=== PATIENT | female | born 1950 | race Caucasian/White ===

== ENCOUNTER 2023-04-11 01:25 | Emergency (ER) | payer OTHER, BC ==
[2023-04-11 01:34] VITALS: BP 150/70; PULSE 100; RESP 18; TEMP 98.3; BMI 24.5
[2023-04-11] MEDS ORDERED: SODIUM CHLORIDE 1,000 ML IV ONE ×2 (01:48→02:48)
[2023-04-11] MEDS ORDERED: ONDANSETRON 4 MG/2 ML VIAL IVPUSH ONE (01:48)
[2023-04-11] MEDS ORDERED: ONDANSETRON 4 MG/2 ML VIAL ONE (01:56)
[2023-04-11 02:54] LABS: HEMATOCRIT 39.6 % (32.4-45.2); HEMOGLOBIN 13.4 GM/dL (10.7-15.3); MCH 30.8 pg (25.7-33.7); MEAN CELL VOLUME 90.7 fl (80-96); MEAN PLT VOLUME 8.1 fl (7.5-11.1); PLATELET COUNT 348 10^3/uL (134-434); RBC 4.36 M/mm3 (3.60-5.2); RDW 12.5 % (11.6-15.6); WHITE BLOOD COUNT 9.5 K/mm3 (4.0-10.0)
[2023-04-11 03:21] LABS: POTASSIUM 3.9 mmol/L (3.5-5.1)
[2023-04-11 03:22] LABS: CALCIUM 9.6 mg/dL (8.5-10.1)
[2023-04-11 03:23] LABS: ALBUMIN 4.6 g/dl (3.4-5.0); BLOOD UREA NITROGEN 27.1 mg/dL (7-18)
[2023-04-11 03:28] LABS: TOT PROT 7.9 g/dl (6.4-8.2)
== END 2023-04-11 03:37 | disposition home or self-care (01) ==
LOC: FER 01:25
PROC: 3E033GC Introduction of Other Therapeutic Substance into Peripheral Vein, Percutaneous Approach (ICD-10-PCS; principal; 2023-04-11)
PROC: 3E0337Z Introduction of Electrolytic and Water Balance Substance into Peripheral Vein, Percutaneous Approach (ICD-10-PCS; 2023-04-11)
PROC: 3E0337Z Introduction of Electrolytic and Water Balance Substance into Peripheral Vein, Percutaneous Approach (ICD-10-PCS; 2023-04-11)
DX: R11.2 Nausea with vomiting, unspecified (principal); R19.7 Diarrhea, unspecified; Z20.822 Contact with and (suspected) exposure to COVID-19
CPT/HCPCS: 0241U-QW; 36415; 80053; 85027; 99284-25